=== PATIENT | male | born 1955 | race Caucasian/White ===

== ENCOUNTER → 2022-05-04 14:10 | Outpatient (BNVA) | payer MEDICARE, SELFPAY | PROVIDERS: PCP Family Medicine; Referring Provider Family Medicine; Visit Provider Physician Assistant | DX: Z12.11 Encounter for screening for malignant neoplasm of colon (principal); K59.00 Constipation, unspecified; R10.9 Unspecified abdominal pain | CPT/HCPCS: 99202 ==

== ENCOUNTER 2022-05-12 12:50 | Outpatient (REF) | payer MEDICARE, SELFPAY ==
[2022-05-12 13:59] LABS: MANUAL DIFF FLAG NO
[2022-05-12 14:06] LABS: Basophils Percent Auto 0.5 % (0-2); Eosinophils Absolute Auto 0.1 X10*3/uL (0.0-0.4); Eosinophils Percent Auto 1.5 % (0-4); Hematocrit 39.6 % (42.0-52.0); Hemoglobin 13.5 g/dl (14.0-18.0); Imm Gran Abs Auto 0.01 X10*3/uL (0.00-0.03); Imm Gran Pct Auto 0.2 % (0.0-0.4); Lymphocytes Absolute Auto 1.7 X10*3/uL (1.2-4.9); Lymphocytes Percent Auto 29.2 % (20-40); Mean Corpuscular HGB Conc 34.1 g/dl (31.0-36.0); Mean Corpuscular Hemoglobin 31.2 pg (27.0-33.0); Mean Corpuscular Volume 91.5 fL (80.0-98.0); Mean Platelet Volume 10.9 fL (9.4-12.4); Monocytes Absolute Auto 0.5 X10*3/uL (0.1-1.2); Monocytes Percent Auto 8.1 % (2-11); Neutrophils Absolute Auto 3.6 x10*3/uL (2.0-8.3); Neutrophils Percent Auto 60.5 % (45-73); Platelet Count 223 X10*3/uL (160-400); Red Blood Count 4.33 X10*6/uL (4.60-5.80); Red Cell Distribution Width 12.1 % (11.0-16.0); White Blood Count 5.9 X10*3/uL (4.8-10.8)
[2022-05-12 14:52] LABS: Erythrocyte Sedimentation Rate 6 MM/HR (0-15)
[2022-05-12 14:58] LABS: Alanine Aminotransferase 19 U/L (0-40); Albumin Level 3.9 g/dL (3.5-5.0); Alkaline Phosphatase 62 U/L (39-117); Anion Gap 8 (12-20); Aspartate Amino Transferase 28 U/L (5-37); Bilirubin Total 0.6 mg/dL (0.0-1.0); Blood Urea Nitrogen 25 mg/dL (9-16); C Reactive Protein < 0.10 mg/dL (< or = 0.50); Calcium 9.2 mg/dL (8.4-10.2); Carbon Dioxide 30 mmol/L (22-29); Chloride 106 mmol/L (96-108); Cholesterol 226 mg/dL; Estimated Glomerular Filt Rate > 60; Glucose Fasting 71 mg/dL (60-99); Glucose Random 71 mg/dL (60-115); HDL Cholesterol 47 mg/dL; LDL Cholesterol Calculated 159 mg/dl; Potassium 4.3 mmol/L (3.3-5.1); Sodium 140 mmol/L (135-145); Total Protein 6.2 g/dL (6.5-8.0); Triglycerides 102 mg/dL
[2022-05-12 15:02] LABS: Prostate Specific Antigen Scr 0.45 ng/mL (<0.05-4.0); TSH reflex Free T4 1.09 uIU/mL (0.32-4.0)
[2022-05-12 15:18] LABS: Thyroid Stimulating Hormone 1.05 uIU/mL (0.32-4.0)
== END 2022-05-12 12:51 | disposition home or self-care (01) ==
LOC: HO.WFDLDS 12:50
PROVIDERS: Family Medicine; Visit Provider Physician Assistant
DX: Z00.00 Encounter for general adult medical examination without abnormal findings (principal); K58.0 Irritable bowel syndrome with diarrhea; K58.1 Irritable bowel syndrome with constipation; K52.9 Noninfective gastroenteritis and colitis, unspecified; K59.09 Other constipation; R10.9 Unspecified abdominal pain; Z12.5 Encounter for screening for malignant neoplasm of prostate
CPT/HCPCS: 36415; 80053; 80061; 84153; 84443; 85025; 85652; 86140

== ENCOUNTER 2022-05-12 13:00 | Outpatient (RCR) | payer MEDICARE, SELFPAY ==
--- NOTE | 2022-04-21 15:19 | MHC.PT.EP ---
[facility] [place] Office [place] Office [place] Office [address] Sunil White [address] [phone] F: [phone] F: [phone] F: [phone] F: [phone] Physical Therapy Plan of Care Date of Evaluation: Date of Surgery: NA Diagnosis: DORSALGIA Assessment: Pt IS 66 YO M REFERRED TO PT FROM DR BAKER WITH DORSALGIA. REPORTS 2 YR HX OF BACK PAIN. PRESENTS WITH LIMITED TRUNK FLEXIBILITY, LIMITED LE FLEXIBILITY, TIGHT LUMBAR PARASPINALS, DECREASED CORE STRENGTH, POOR POSTURE AWARENESS. WORKS OVERNIGHT SHIFT AT ASSISTED. DIRECTIONAL PREFERENCE TO EXTENSION. SHOULD BENEFIT FROM PT TO ADDRESS THESE ISSUES Frequency and Duration: The patient will be seen 1X/WK X 4 WKS Short Term Goals: 1. INCREASED AWARENESS POSTURE AND BACK CARE WITH BODY MECH 2. I HEP WITH DC EX PLAN Half-Way Goals: 1. INCREASED TRUNK FLEXIBILITY 25% WITH LESS END RANGE PAIN 2. DECREASED BACK PAIN AT LEAST 50% WITH ADLS 3. IMPROVED MOD OSWESTRY (20/50 SOC) Treatment Plan: Modalities to reduce pain, spasms and effusion. Manual therapy to restore motion and function. Therapeutic exercise to improve strength and flexibility. Neuromuscular re-education for posture and balance. Therapeutic activities to return to functional activities of daily living. Electronically signed by: BANDAR SALVADOR PT Please sign and return to therapist. Thank you for your referral.
--- NOTE | 2022-05-19 14:27 | MHC.PT.DC ---
[facility] [place] Office [place] Office [place] Office [address] Sunil White [address] [phone] F: [phone] F: [phone] F: [phone] F: [phone] Physical Therapy Discharge Report Diagnosis: DORSALGIA Date of Surgery: NA Date of Evaluation: 04/21/22 Date of Discharge: 05/19/22 Treatments to Date: 3 Cancellations to Date: No Shows to Date: Discharge Status: Improved Function Independent with HEP Patient Elected to Stop Discharge Summary: GOOD PERF EX/STRETCHES WITHOUT C/O LE SXS OR INCREASE IN BACK PAIN. PLAN AT LAST SESSION TO MAKE 1 VISIT FOR 2 WK FU, IF NO INCREASED IN SXS TO CALL FOR DC, OTHERWISE CONT, REV GOALS AND LE STRENGTHENING . Pt CALLED TO CX LAST SESSION REPORTING FEELING BETTER AND NO NEED FOR FURTHER PT. 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 Thank you for your referral.
== END 2022-05-19 14:28 | disposition home or self-care (01) ==
LOC: HO.PTWFD 13:00
PROVIDERS: Visit Provider Family Medicine
DX: M54.9 Dorsalgia, unspecified (principal)
CPT/HCPCS: 97110; 97140; 97161; 97535

== ENCOUNTER 2022-05-26 07:23 | Outpatient (REF) | payer MEDICARE, SELFPAY ==
--- NOTE | ~2022-05-26 | XR_ITS ---
EXAMINATION: XR LUMBOSACRAL SPINE CLINICAL INFORMATION: Pain. COMPARISON: CT abdomen/pelvis performed same day. TECHNIQUE: Three views of the lumbosacral spine. FINDINGS: No acute compression deformity or traumatic subluxation. Prominent Schmorl's nodules along the inferior endplate of L4 and superior endplate of L5. Mild disc height loss at L4-L5 and L5-S1 with associated facet arthropathy leading to certain degree of neural foraminal encroachment. SI joints are symmetric. No significant paraspinal soft tissue abnormality. XR/XR lumbar spine 2-3V IMPRESSION: 1. No acute compression deformity or traumatic subluxation. 2. Moderate lower lumbar spondylosis. Further evaluation with an MR of the lumbar spine could be obtained for further characterization of nerve root impingement and degree of central canal narrowing if clinically deemed appropriate.
--- NOTE | ~2022-05-26 | CT_ITS ---
EXAMINATION: CT ABDOMEN AND PELVIS WITH CONTRAST CLINICAL INFORMATION: Abdominal pain. COMPARISON: None. TECHNIQUE: Multidetector volumetric images were obtained from the superior aspect of the liver through the pubic symphysis following administration 85 mL of Omnipaque 350 intravenous contrast. Sagittal and coronal reformatted images were obtained on the technologist's workstation. Oral contrast: No This CT examination was performed using dose optimization techniques as appropriate, variously including the following: *Automated exposure control *Adjustment of mA and/or kV according to patient size (this includes techniques or standardized protocols for targeted exams where dose is matched to indication/reason for exam; i.e. extremities or head) *Use of iterative reconstruction technique DLP: 408 mGy-cm FINDINGS: LUNG BASES: There is minimal plate-like atelectasis in the lung bases. Heart size is normal. LIVER, GALLBLADDER, AND BILIARY TREE: The liver is normal in size, shape, and attenuation. No focal hepatic lesion or biliary ductal dilatation is present. The gallbladder is unremarkable with no evidence of radiopaque gallstones, gallbladder wall thickening, or obvious pericholecystic inflammatory changes. PANCREAS: Unremarkable. SPLEEN: Unremarkable. ADRENAL GLANDS: Unremarkable. KIDNEYS AND URETERS: The kidneys are normal in size, shape, and attenuation. No hydronephrosis, hydroureter, or calculi seen. No perinephric stranding. BLADDER: Unremarkable. GASTROINTESTINAL TRACT: There is scattered oral contrast and stool seen in the colon without distention. The small bowel loops, partially opacified with oral contrast, are normal caliber. Appendix is normal caliber. No inflammatory process, free air or free fluid seen. ABDOMINAL WALL: No significant hernia is appreciated. LYMPH NODES: Normal. VASCULAR: Unremarkable. PELVIC VISCERA: Unremarkable. OSSEOUS STRUCTURES: No aggressive lytic or sclerotic process seen. There is an endplate Schmorl's node and sclerosis at the L4-L5 disc level. There is mild ventral spondylosis at L3-L4, L4-L5 and L2-L3 disc levels. CT/CT abdomen pelvis w IV con IMPRESSION: 1. No acute intra-abdominal process seen. 2. Mild constipation. Fleischner guidelines were followed.
[2022-05-26] MEDS: iohexoL 350 MG/ML 100 ML INFUS..BTL IV (09:55)
[2022-05-26] MEDS: Barium Sulfate Oral (Mocha) 450 ML ORAL.SUSP 900 ML PO (09:56)
== END 2022-05-26 07:24 | disposition home or self-care (01) ==
LOC: HO.CT 07:23
PROVIDERS: PCP Family Medicine; Visit Provider Physician Assistant
DX: R10.9 Unspecified abdominal pain (principal); M54.9 Dorsalgia, unspecified
CPT/HCPCS: 72100; 74177; Q9967

== ENCOUNTER 2022-06-09 11:49 | Outpatient (REF) | payer MEDICARE, SELFPAY ==
[2022-06-09 14:04] LABS: Appearance Urine Clear; Color Urine Yellow; Glucose Urine UA Negative (Negative); Leukocyte Esterase Urine Negative (Negative); Nitrite Urine Negative (Negative); PH 5.5 (5.0-9.0); Urine Blood Negative (Negative); Urine Ketones Negative (Negative); Urine Protein Negative (Neg-Trace)
== END 2022-06-09 11:50 | disposition home or self-care (01) ==
LOC: HO.LAB 11:49
PROVIDERS: Visit Provider Family Medicine
DX: Z00.00 Encounter for general adult medical examination without abnormal findings (principal); R39.11 Hesitancy of micturition; R30.0 Dysuria
CPT/HCPCS: 81003; 87086

== ENCOUNTER 2022-09-08 12:01 | Outpatient (REF) | payer MEDICARE, SELFPAY ==
[2022-09-08 14:14] LABS: MANUAL DIFF FLAG NO
[2022-09-08 14:27] LABS: Basophils Percent Auto 0.3 % (0-2); Eosinophils Absolute Auto 0.2 X10*3/uL (0.0-0.4); Eosinophils Percent Auto 2.1 % (0-4); Hematocrit 44.5 % (42.0-52.0); Hemoglobin 15.1 g/dl (14.0-18.0); Imm Gran Abs Auto 0.02 X10*3/uL (0.00-0.03); Imm Gran Pct Auto 0.2 % (0.0-0.4); Lymphocytes Absolute Auto 2.2 X10*3/uL (1.2-4.9); Lymphocytes Percent Auto 24.3 % (20-40); Mean Corpuscular HGB Conc 33.9 g/dl (31.0-36.0); Mean Corpuscular Hemoglobin 31.5 pg (27.0-33.0); Mean Corpuscular Volume 92.9 fL (80.0-98.0); Mean Platelet Volume 11.3 fL (9.4-12.4); Monocytes Absolute Auto 0.9 X10*3/uL (0.1-1.2); Monocytes Percent Auto 10.4 % (2-11); Neutrophils Absolute Auto 5.5 x10*3/uL (2.0-8.3); Neutrophils Percent Auto 62.7 % (45-73); Platelet Count 223 X10*3/uL (160-400); Red Blood Count 4.79 X10*6/uL (4.60-5.80); Red Cell Distribution Width 12.3 % (11.0-16.0); White Blood Count 8.8 X10*3/uL (4.8-10.8)
[2022-09-08 15:08] LABS: Anion Gap 9 (12-20); Blood Urea Nitrogen 24 mg/dL (9-16); Carbon Dioxide 31 mmol/L (22-29); Chloride 106 mmol/L (96-108); Cholesterol 211 mg/dL; Estimated Glomerular Filt Rate > 60; Glucose Random 80 mg/dL (60-115); HDL Cholesterol 47 mg/dL; LDL Cholesterol Calculated 143 mg/dl; Potassium 4.4 mmol/L (3.3-5.1); Sodium 142 mmol/L (135-145); Triglycerides 108 mg/dL
[2022-09-10 07:53] LABS: LDL Cholesterol Direct 151 mg/dL (<100)
== END 2022-09-08 12:02 | disposition home or self-care (01) ==
LOC: HO.WFDLDS 12:01
PROVIDERS: Visit Provider Family Medicine
DX: Z00.00 Encounter for general adult medical examination without abnormal findings (principal); E78.00 Pure hypercholesterolemia, unspecified; D64.9 Anemia, unspecified
CPT/HCPCS: 36415; 80048; 80061; 83721; 85025

== ENCOUNTER → 2022-11-05 11:11 | Outpatient (BNVA) | payer MEDICARE, SELFPAY | PROVIDERS: PCP Family Medicine; Visit Provider Urology | DX: N40.1 Benign prostatic hyperplasia with lower urinary tract symptoms (principal); R35.1 Nocturia | CPT/HCPCS: 51798; 99202 ==

== ENCOUNTER 2022-11-10 12:52 | Day surgery (SDC) | payer MEDICARE, SELFPAY ==
[2022-11-08 12:40] VITALS: BMI 26.2
--- NOTE | 2022-11-10 13:38 | MHC.SHP ---
Pre-Procedural Eval Section A Date of Service: 11/10/22 Section B Chief Complaint: screening Relevant Social History: None Present Medications: see Short Stay Collaborative assessment Medical History: Significant History (high chol, BPH) History of Previous Operations: No relevant previous surgery Allergies: Allergies Allergy/AdvReac Type Severity Reaction Status Date / Time Penicillins Allergy Severe Unknown Verified 11/05/22 11:35 Review of Systems Sugical H&P ROS: Negative: Constitution, Cardiovascular, Respiratory, Neurological, Psychiatric, Hem-Onc, Allergic/Immunologic, Gastrointestinal, Genitourinary, Musculoskeletal, Integumentary, Endocrine and Eyes/Ears/Nose/Throat Exam Surgical H&P Exam: Normal: HEENT, Normal: Heart, Normal: Lungs, Normal: Extremities, Normal: Abdomen, Normal: Skin and Normal: Neurological Plan Diagnosis/Plan: Unchanged I have reviewed the history and physical and performed a pertinent physical examination on my patient. No changes have occurred unless specified. Time Spent With Patient Time: Total time managing care of this patient today ____ minutes.
[2022-11-10 13:47] VITALS: BMI 26.1
[2022-11-10 13:52] VITALS: BP 122/75; PULSE 54; RESP 18; TEMP 36.4; O2SAT 99
[2022-11-10] MEDS: Lactated Ringers 1,000 ML 100 ML IVCONT (13:55)
[2022-11-10] MEDS: Sodium Phosphate,Mono-Dibasic 133 ML ENEMA PR (13:56)
--- NOTE | 2022-11-10 14:24 | W.PM.OPN ---
Operative Note Operative Note Date of Service: 11/10/22 Narrative: Operative Information Procedure Description: Colonoscopy Indication: screening Anesthesia: MAC COLONOSCOPY Instrument: Olympus variable stiffness ADULT scope 190L Colonoscopy Monitoring: Vital signs and clinical assessment, continuous EKG monitoring, Pulse oximetry, Carbon Dioxide monitoring and blood pressure monitoring were done throughout the procedure. Colon withdrawal time was 7 minutes. Procedure: The patient was placed in the left lateral decubitis position and pre-procedure medications were administered. After a digital rectal examination of the ano-rectum, the video colonoscope was inserted into the rectum and advanced through the colon to the cecum/TI. The colonoscope was slowly withdrawn in a retrograde panoramic fashion and the colon mucosa was carefully examined including a retroflexed view of the rectum. Findings and interventions are described below. Procedure Difficulty: easy Findings: Terminal Ileum-normal Cecum:normal Ascending Colon: 10 mm sessile polyp removed with cold snare Transverse Colon -normal Descending Colon:normal Sigmoid Colon: normal Rectum: Retroflexion with medium sized internal hemorrhoids, grade I, 8-10 mm sessile polyp removed with cold snare Anorectum - normal Colon preparation: Parker Bowel Preparation Scale Right colon; 2 Transverse colon: 1-2 Left colon; 1-2 (0 = Unprepared colon segment with mucosa not seen due to solid stool that cannot be cleared. 1 = Portion of mucosa of the colon segment seen, but other areas of the colon segment not well seen due to staining, residual stool and/or opaque liquid. 2 = Minor amount of residual staining, small fragments of stool and/or opaque liquid, but mucosa of colon segment seen well. 3 = Entire mucosa of colon segment seen well with no residual staining, small fragments of stool or opaque liquid) Impression and Post Procedure Diagnosis: fair prep polyps internal hemorrhoids Plan: High fiber diet leaflet Avoid straining at stool, epsom salts and sitz bath, anusol supps or cream Repeat Colonoscopy in 8-12 months or earlier if clinically indicated --next time adherence to diet and prep Above findings were reviewed with the patient and relevant handouts were provided if indicated.
[2022-11-10 14:27] VITALS: BP 91/47; PULSE 51; RESP 16; TEMP 36.9; O2SAT 98
[2022-11-10 14:46] VITALS: BP 120/68; PULSE 48; RESP 17; TEMP 36.1; O2SAT 99
== END 2022-11-10 15:32 | disposition home or self-care (01) ==
PROVIDERS: PCP Family Medicine; Visit Provider Internal Medicine Gastroenterology
PROC: 0DJD8ZZ Inspection of Lower Intestinal Tract, Via Natural or Artificial Opening Endoscopic (ICD-10-PCS; CPT 45378; principal; 2022-11-10 15:00)
DX: Z12.11 Encounter for screening for malignant neoplasm of colon (principal); D12.2 Benign neoplasm of ascending colon; K62.1 Rectal polyp; K64.0 First degree hemorrhoids; E78.00 Pure hypercholesterolemia, unspecified; D64.9 Anemia, unspecified; K59.00 Constipation, unspecified; Z87.891 Personal history of nicotine dependence; Z88.0 Allergy status to penicillin
CPT/HCPCS: 45385; 88305

== ENCOUNTER → 2022-11-10 12:52 | Outpatient (BNV) | payer MEDICARE, SELFPAY | PROVIDERS: PCP Family Medicine; Visit Provider Internal Medicine Gastroenterology | DX: K63.5 Polyp of colon (principal) | CPT/HCPCS: 45385 ==

== ENCOUNTER 2022-11-24 08:31 | Outpatient (AMB) | payer MEDICARE, SELFPAY ==
--- NOTE | 2022-11-24 08:39 | MHC.OFFVIS ---
Intake Vital Signs 11/24/22 08:46 Height 5 ft 11 in Weight 186 lb BMI 25.9 BP 98/53 L Blood Pressure Location Lt brachial Position Sitting Pulse 54 Intake Visit Reasons: S/p- Colon- Sun Intake Note: Patient follow up for Colonoscopy results. Patient cc: abdominal pain, heartburn on and off. Orthodontic Technician Required: No Accompanied by: Self / Same As Patient Allergies Penicillins Allergy (Severe, Verified 11/24/22 08:36) Unknown HPI HPI Comments History of Present Illness Details A 67 y/o male f/u after colonoscopy with polypectomy- inadequate prep Reviewed procedure and pathology Tolerated procedure well Abdominal comfort in the morning typically before BM however resolved BM. Has ear discomfort- alot of wax-feels pressure in the ear Eye surgery- in January-Flomax had been discontinued-however he is having dysuria Asking questions as to alternatives or other intervention He has no nausea, vomiting, hematemesis, hematochezia, fever chills. He has no hematuria. [facility] Medical History (Updated 11/24/22 @ 09:07 by Tangela Ulrich PA-C) Dysuria Surgical History Hx of colonoscopy Social History Alcohol intake: current Alcohol intake frequency: holidays/special occasions only Patient Tobacco Use Status: Former Tobacco user Quit Date: quit 12 yrs ago e-Cigarette/Vaping Use: Never Used Second Hand Smoke Exposure: No service: No Current occupational status: employed Current occupational exposures/hazards: No Cognitive needs: No Hearing needs: No Vision needs: No Review of Systems Const All systems reviewed & are unremarkable except as noted in HPI and below Card Denies chest pain and Denies dyspnea Resp Denies dyspnea GI Reports GI cramping (Resolved after BM), Denies diarrhea, Denies nausea and Denies vomiting Reports difficulty urinating (Since Flomax was discontinued) Physical Exam Vital Signs: Last Vital Signs Pulse 54 11/24/22 08:46 BP 98/53 L 11/24/22 08:46 BMI result Body Mass Index 25.9 Const General: cooperative, healthy appearing, comfortable and no acute distress Orientation/consciousness: patient oriented x3 Limitations: no limitations Eyes Sclerae: sclerae normal Resp Effort & Inspection: normal respiratory effort and able to speak in complete sentences Skin General skin exam: no rashes or lesions noted Neuro General: patient oriented x3 Extrem General: Yes full ROM Psych Appearance: grossly normal and well kempt Mental Status: mental status grossly normal Speech and movement: Normal speech and movement present and Clear speech present Affect: Labile affect present Attitude: cooperative Thought process: Normal thought process present Thought content: Normal thought content present Results Reviewed Results Reviewed: Impression and Post Procedure Diagnosis: fair prep polyps internal hemorrhoids Plan: High fiber diet leaflet Avoid straining at stool, epsom salts and sitz bath, anusol supps or cream Repeat Colonoscopy in 8-12 months or earlier if clinically indicated --next time adherence to diet and prep Name:?RachmarceloKurtis Age/Sex: 67/M Attending: Francie Sun MD : 1955 Submitted by: Francie Sun MD Copies to: Matt Miranda MD MR #: [id number] ? Status: [facility] Collected: 11/10/22 Location: [facility] Received: 11/11/22 Diagnosis A.? Colon, ascending, polypectomy:? Sessile serrated polyp/lesion without cytologic dysplasia.? B.? Rectum, polypectomy:? Hyperplastic polyp. Clinical History Pre-Op Dx:? Colon cancer screening Post-Op Dx: Colon polyps, hemorrhoids, fair prep Above findings were reviewed with the patient and relevant handouts were provided if indicated. CT/CT abdomen pelvis w IV con IMPRESSION: 1.? No acute intra-abdominal process seen. ? 2.? Mild constipation. ? Assessment & Plan Assessment & Plan (1) Sessile colonic polyp: Code(s): K63.5 - Polyp of colon Plan: Repeat colonoscopy 8-12 months She back in office in 7 months to schedule and discuss extended prep Difficult to have 2 days clear would recommend MiraLax b.i.d. 5 days prior to prep day (2) Hemorrhoids: Code(s): K64.9 - Unspecified hemorrhoids Plan: Maintain high-fiber diet avoid straining Literature given (3) Hyperplastic colonic polyp: Code(s): K63.5 - Polyp of colon Plan Call PCP today to discuss non GI issues Schedule for office visit repeat colonoscopy 7 months Medications: New methylcellulose (laxative) (Citrucel) 500 mg PO TID 90 tabs 5RF Patient Instructions: Repeat colonoscopy 8-12 months will see back in the office and is 7 months to discuss extended prep. Maintain high-fiber diet avoid straining with hemorrhoids. He will give trial to Citrucel tabs High-fiber diet literature given to the patient Contact PCP today for non GI concerns-discuss dysuria as well as possible impacted cerumen- Opportunity for questions answered to his satisfaction. Encouraged to call with any questions or concerns Appreciate the opportunity assist in the care this enrico Roque Coding Level of Care Code Est Pt Level 3 (41194) Diagnoses Sessile colonic polyp K63.5 Hemorrhoids K64.9 Hyperplastic colonic polyp K63.5 Time Spent (min) 22
[2022-11-24 08:46] VITALS: BP 98/53; PULSE 54; BMI 25.9
== END 2022-11-24 08:57 | disposition home or self-care (01) ==
PROVIDERS: PCP Family Medicine; Visit Provider Physician Assistant
DX: K63.5 Polyp of colon (principal); K64.9 Unspecified hemorrhoids
CPT/HCPCS: 99213

== ENCOUNTER → 2022-11-24 08:31 | Outpatient (BNVA) | payer MEDICARE, SELFPAY | PROVIDERS: PCP Family Medicine; Visit Provider Physician Assistant | DX: K63.5 Polyp of colon (principal); K64.9 Unspecified hemorrhoids | CPT/HCPCS: 99212 ==

== ENCOUNTER 2022-11-25 10:13 | Outpatient (AMB) | payer MEDICARE, SELFPAY ==
[2022-11-25 10:34] VITALS: BP 98/54; PULSE 65; RESP 14; TEMP 37.2; O2SAT 96; BMI 25.0
--- NOTE | 2022-11-25 10:34 | AM.OFFWIN_ITS ---
Intake Vital Signs 11/25/22 10:34 Height 5 ft 11 in Weight 179 lb 2 oz BMI 25.0 BP 98/54 L Blood Pressure Location Rt brachial Position Sitting Respiration 14 Pulse 65 Pulse Source Pulse Oximeter Temp 98.9 F Temp Source Temporal Artery Scan Pulse Oximetry (%) 96 Oxygen Delivery Method Room Air Intake Visit Reasons: right ear blocked, [phone] Intake Note: Patient is here today because of his right ear feeling impacted. Patient reports he has tried OTC ear drops and flushing his ear at home with no relief. Secondary question patient is having cataract surgery on January 13 and and was told he has to hold his flomax. Patient is wondering how long he should hold flomax prior to surgery. Patient Tobacco Use Status: Former Tobacco user Quit Date: quit 12 yrs ago Duplex Trimmer Required: No Accompanied by: Self / Same As Patient Allergies Penicillins Allergy (Severe, Verified 11/25/22 11:00) Unknown Medication List - Last Reconciled 11/25/22 by Sheryl Milton CNP atorvastatin 20 mg PO BEDTIME 30 days methylcellulose (laxative) (Citrucel) 500 mg PO TID tamsulosin (Flomax) 0.4 mg PO BEDTIME 30 days Do you need a note to return to daycare/school/sports/work: No HPI HPI Comments History of Present Illness Details 67-year-old male presents with complaints of blocked right ear with impaired hearing. He notes that his right ear feels impacted. [id number] remedies have been ineffective. No ear pain, fever, chills, body aches, fatigue, or weakness. He states he was told by his surgical provider to hold tamsulosin for pending cataract surgery. He is unsure of how long to the medication P [facility] Medical History (Updated 11/25/22 @ 11:12 by Sheryl Milton CNP) Dysuria Surgical History Hx of colonoscopy Social History Alcohol intake: current Alcohol intake frequency: holidays/special occasions only Patient Tobacco Use Status: Former Tobacco user Quit Date: quit 12 yrs ago e-Cigarette/Vaping Use: Never Used Second Hand Smoke Exposure: No service: No Current occupational status: employed Current occupational exposures/hazards: No Cognitive needs: No Hearing needs: No Vision needs: No Review of Systems Const Details: Const Denies chills, Denies fatigue, Denies fever(s), Denies headache(s) and Denies weakness ENT Reports as per HPI Resp Denies cough, Denies dyspnea, Denies wheezing and Denies other (shortness of breath) Cardio Denies chest pain, Denies lightheadedness, Denies dyspnea and Denies other (palpitations) Neuro Denies dizziness, Denies headache(s), Denies numbness, Denies tingling and Denies weakness Psych Denies anxiety, Denies depression, Denies memory?loss Endo Denies fatigue Aller/Immun Denies wheezing Physical Exam Vital Signs: Last Vital Signs Temp 98.9 F 11/25/22 10:34 Pulse 65 11/25/22 10:34 Resp 14 11/25/22 10:34 BP 98/54 L 11/25/22 10:34 Pulse Ox 96 11/25/22 10:34 Oxygen Delivery Method Room Air 11/25/22 10:34 BMI result Body Mass Index 25.0 Const Other: Const General: well developed; No acute distress Nutritional Appearance: well nourished Orientation/consciousness: patient oriented x3 HEENT Head is normocephalic Impacted cerumen of the right ear, ear canal is normal. Left ear canal and TM is normal. Nasal turbinates and oropharynx are pink and moist Sinuses are nontender with palpation No auricular or cervical lymphadenopathy Eyes General: appearance normal, both eyes and all related structures Pupils: Equal, round and reactive pupils present EOM: EOMs intact bilaterally Resp Effort & Inspection: normal respiratory effort Auscultation: clear to auscultation bilaterally Cardio Rate: regular rate Rhythm: regular rhythm Heart sounds: S1 normal heart sound present, S2 normal heart sound present, no gallops, no murmurs and no rubs Bruits: no abdominal aortic bruits and no carotid bruits Neuro General: patient oriented x3 and gait normal, no focal neuro deficit Cranial nerves: Yes Equal, round and reactive pupils present Psych Affect: normal affect Assessment & Plan Assessment & Plan (1) Impacted cerumen, right ear: Code(s): H61.21 - Impacted cerumen, right ear Plan: Cerumen removed from the right ear with irrigation Right ear canal and TM is normal Patient reports improved right hearing Advised to contact surgery regarding all long tamsulosin should be held Advised to follow-up with PCP as planned or return sooner with symptoms or concerns Verbalized understanding and agreed with treatment plan. Coding Level of Care Code Est Pt Level 3 (42959) Diagnoses Impacted cerumen, right ear H61.21 Time Spent (min) 25
== END 2022-11-25 11:21 | disposition home or self-care (01) ==
PROVIDERS: PCP Family Medicine; Visit Provider Nurse Practitioner Family
DX: H61.21 Impacted cerumen, right ear (principal)
CPT/HCPCS: 99213

== ENCOUNTER 2022-12-23 09:48 | Outpatient (REF) | payer OTHER, MEDICARE, SELFPAY ==
[2022-12-23 11:12] LABS: MANUAL DIFF FLAG NO
[2022-12-23 11:51] LABS: Basophils Percent Auto 0.6 % (0-2); Eosinophils Absolute Auto 0.1 X10*3/uL (0.0-0.4); Eosinophils Percent Auto 1.7 % (0-4); Hemoglobin 14.9 g/dl (14.0-18.0); Imm Gran Abs Auto 0.01 X10*3/uL (0.00-0.03); Imm Gran Pct Auto 0.2 % (0.0-0.4); Immature Retic Fraction 6.4 % (2.3-13.4); Lymphocytes Absolute Auto 1.5 X10*3/uL (1.2-4.9); Lymphocytes Percent Auto 27.1 % (20-40); Mean Corpuscular HGB Conc 34.7 g/dl (31.0-36.0); Mean Corpuscular Hemoglobin 31.9 pg (27.0-33.0); Mean Corpuscular Volume 92.1 fL (80.0-98.0); Mean Platelet Volume 10.9 fL (9.4-12.4); Monocytes Absolute Auto 0.5 X10*3/uL (0.1-1.2); Monocytes Percent Auto 9.9 % (2-11); Neutrophils Absolute Auto 3.3 x10*3/uL (2.0-8.3); Neutrophils Percent Auto 60.5 % (45-73); Platelet Count 214 X10*3/uL (160-400); Red Blood Count 4.67 X10*6/uL (4.60-5.80); Red Cell Distribution Width 12.5 % (11.0-16.0); Reticulocytes Absolute 0.047 X10*6/uL (0.026-0.095); White Blood Count 5.4 X10*3/uL (4.8-10.8)
[2022-12-23 12:17] LABS: Anion Gap 11 (12-20); Blood Urea Nitrogen 21 mg/dL (9-16); Calcium 9.4 mg/dL (8.4-10.2); Carbon Dioxide 28 mmol/L (22-29); Chloride 107 mmol/L (96-108); Cholesterol 145 mg/dL (<200); Estimated Glomerular Filt Rate > 60; Glucose Fasting 95 mg/dL (60-99); HDL Cholesterol 51 mg/dL (>40); Iron 88 mcg/dL (45-160); LDL Cholesterol Calculated 84 mg/dL (<100); Percent Iron Saturation 29 % (15-50); Potassium 4.6 mmol/L (3.3-5.1); Sodium 141 mmol/L (135-145); Total Iron Binding Capacity 307 mcg/dL (228-428); Triglycerides 53 mg/dL (<150); Unsaturated Iron Binding 219 ug/dL
[2022-12-23 12:20] LABS: Ferritin 95 ng/mL (20-250)
[2022-12-23 13:32] LABS: Folate 10.2 ng/mL (> or = 4.0); Vitamin B12 464 pg/mL (200-900)
== END 2022-12-23 09:49 | disposition home or self-care (01) ==
LOC: HO.WFDLDS 09:48
PROVIDERS: Visit Provider Family Medicine
DX: D64.9 Anemia, unspecified (principal); E53.8 Deficiency of other specified B group vitamins; E78.00 Pure hypercholesterolemia, unspecified
CPT/HCPCS: 36415; 80048; 80061; 82607; 82728; 82746; 83540; 85025; 85045

== ENCOUNTER 2022-12-30 14:39 | Outpatient (AMB) | payer MEDICARE, SELFPAY ==
[2022-12-30 14:42] VITALS: BP 100/60; PULSE 65; O2SAT 98; BMI 25.0
--- NOTE | 2022-12-30 14:42 | MHC.PC.OV ---
Vital Signs 12/30/22 14:42 Height 5 ft 11 in Weight 179 lb BMI 25.0 BP 100/60 Blood Pressure Location Lt brachial Position Sitting Pulse 65 Pulse Source Pulse Oximeter Pulse Oximetry (%) 98 Oxygen Delivery Method Room Air Intake Visit Reasons: f/u hypercholesterolemia Intake Note: Patient is here to follow up on his cholesterol. He is having cataract surgery in about 3 weeks, needs medication to be signed off. Allergies Penicillins Allergy (Severe, Verified 12/30/22 14:47) Unknown Tobacco use date assessed: 12/30/22 Fall risk assessment: No Falls in past year Last assessed Fall Risk: 12/30/22 Dental Screening Dental Screen Date: 12/30/22 Did you have a dental visit in the last 12 months?: No Did you have a dental problem in the last 6 months where you did not have access to dental care?: No Was dental information given to patient?: Patient declined HPI f/u hypercholesterolemia HPI Details 67 y/o male presents to f/u HLD. Had started him on artovastatin 20mg daily. Labs were drawn 12/23/22. Reviewed labs with pt. Triglycerides improved from 108 to 63. TC 145. LDL improved from 143 to 84. HDL 51. Pt has concerns regarding flomax and his glaucoma surgery. HPI Comments History of Present Illness Details Documentation assistance for Matt Miranda MD, was provided by Dk Santiago, Wind Instrument Repairer on 12/30/2022 3:25 PM EST. I, Dr. Miranda, have read, observed, and verified documentation. PFSH Medical History Dysuria Surgical History Hx of colonoscopy Social History Housing: House Alcohol intake: current Alcohol intake frequency: holidays/special occasions only Patient Tobacco Use Status: Former Tobacco user Quit Date: quit 12 yrs ago e-Cigarette/Vaping Use: Never Used Second Hand Smoke Exposure: No service: No Current occupational status: employed Current occupational exposures/hazards: No Cognitive needs: No Hearing needs: No Vision needs: No Questionnaire Thrive Questionnaire Date Thrive assessed: 06/09/22 ANGELICA-7 AMB Questionnaire ANGELICA-7 Date ANGELICA - 7 assessed: 06/09/22 Source: Developed by Drs. Rolando Hunt, Franchesca Dhaliwal, Peyman Pena and colleagues, with an educational keith from [employer]. Review of Systems Const Denies chills, Denies fatigue, Denies fever(s), Denies headache(s) and Denies weakness ENT Denies dizziness and Denies headache(s) Card Denies dyspnea Resp Denies cough, Denies dyspnea, Denies wheezing and Denies other (shortness of breath) Musc Denies numbness and Denies tingling Neuro Denies dizziness, Denies headache(s), Denies numbness, Denies tingling and Denies weakness Psych Denies anxiety and Denies depression Endo Denies fatigue Aller/Immun Denies wheezing Physical exam (Primary Care) Vital Signs: Last Vital Signs Pulse 65 12/30/22 14:42 BP 100/60 12/30/22 14:42 Pulse Ox 98 12/30/22 14:42 Oxygen Delivery Method Room Air 12/30/22 14:42 BMI result Body Mass Index 25.0 Tobacco/Smoking Status: Tobacco use Status Tobacco use date assessed 12/30/22 12/30/22 14:53 Patient Tobacco Use Status Former Tobacco user 12/30/22 14:53 e-Cigarette/Vaping Use Never Used 12/30/22 14:53 Thrive Assessment: Date of Thrive Assessment Date Thrive assessed 06/09/22 12/30/22 14:53 Const General: well developed; No acute distress Nutritional Appearance: well nourished Orientation/consciousness: patient oriented x3 [facility] Head: Yes normocephalic and Yes atraumatic Eyes General: appearance normal, both eyes and all related structures Pupils: Equal, round and reactive pupils present EOM: EOMs intact bilaterally Resp Effort & Inspection: normal respiratory effort Neuro General: patient oriented x3 and gait normal Cranial nerves: Yes Equal, round and reactive pupils present Psych Affect: normal affect Assessment and Plan Assessment & Plan (1) Hypercholesterolemia: Code(s): E78.00 - Pure hypercholesterolemia, unspecified Plan: Lipids now well controlled on atorvastatin 20 mg daily Continue current medication regimen Continue diet lower in saturated fats and cholesterol and continue exercise (2) Hyperplastic colonic polyp: Code(s): K63.5 - Polyp of colon Plan: Hyperplastic polyps seen on colonoscopy. He will follow-up with GI in 8-12 months (3) BPH associated with nocturia: Code(s): N40.1 - Benign prostatic hyperplasia with lower urinary tract symptoms; R35.1 - Nocturia Plan: Followed by urology now and has an appointment for follow-up in 6 months He is on Flomax which significantly helps with symptoms. He is concerned regarding Flomax and glaucoma surgery-see below (4) Glaucoma: Code(s): H40.9 - Unspecified glaucoma Plan: Patient has an upcoming glaucoma surgery and is on Flomax. He inquired with his carbonator and neurologist to seem to have deferred decision about Flomax to each other and to me. Patient will discontinue Flomax at least a week prior to his surgery. He will let his eye surgeon know how long he has discontinued it. He should follow-up with the eye surgeon regarding when he can resume this. Coding Level of Care Code Est Pt Level 4 (61033) Diagnoses Hypercholesterolemia E78.00 Hyperplastic colonic polyp K63.5 BPH associated with nocturia N40.1; R35.1 Glaucoma H40.9
== END 2022-12-30 15:36 | disposition home or self-care (01) ==
PROVIDERS: PCP Family Medicine; Visit Provider Family Medicine
DX: E78.00 Pure hypercholesterolemia, unspecified (principal); K63.5 Polyp of colon; N40.1 Benign prostatic hyperplasia with lower urinary tract symptoms; R35.1 Nocturia; H40.9 Unspecified glaucoma
CPT/HCPCS: 99214

== ENCOUNTER 2023-01-06 12:51 | Outpatient (AMB) | payer MEDICARE, SELFPAY ==
[2023-01-06 12:55] VITALS: BP 98/60; PULSE 48; RESP 12; TEMP 36.6; O2SAT 99; BMI 25.4
--- NOTE | 2023-01-06 12:55 | A.OFFPC_ITS ---
Vital Signs 01/06/23 12:55 Height 5 ft 11 in Weight 182 lb 2 oz BMI 25.4 BP 98/60 Blood Pressure Location Rt brachial Position Sitting Respiration 12 Pulse 48 L Pulse Source Pulse Oximeter Temp 97.9 F Temp Source Temporal Artery Scan Pulse Oximetry (%) 99 Oxygen Delivery Method Room Air Intake Visit Reasons: 01/13/23 Cataracts Right Eye- Eye&Lasik Club Attendant Required: No Accompanied by: Self / Same As Patient Allergies Penicillins Allergy (Severe, Verified 01/06/23 13:02) Unknown Tobacco use date assessed: 12/30/22 Fall risk assessment: No Falls in past year Last assessed Fall Risk: 01/06/23 Dental Screening Dental Screen Date: 01/06/23 Did you have a dental visit in the last 12 months?: No Did you have a dental problem in the last 6 months where you did not have access to dental care?: No Was dental information given to patient?: Yes HPI 01/13/23 Cataracts Right Eye- Eye&Lasik HPI Details Patient presents for preoperative clearance prior to Cataract & Lasik Procedure: Date: 01/13/23 and 01/27/23 Surgeon: Dr. Smith Anesthesia: Local & MAC Cardiac Hx: None Pulmonary Hx: None Prior Surgical complications: None Prior Anesthesia Complications: L hand Lac repair with local anesthetic - no problems Coag Issues: None Functional [place]: Able to walk 2 city blocks on level ground. Able to climb multiple flight of stairs with a bag of groceries. Plays golf. PFSH Medical History Dysuria Surgical History Hx of colonoscopy Family History (Updated 01/06/23 @ 13:04 by Marlee Fierro MA) Other Mental health disorder Social History Housing: House Alcohol intake: current Alcohol intake frequency: holidays/special occasions only Patient Tobacco Use Status: Former Tobacco user Quit Date: quit 12 yrs ago e-Cigarette/Vaping Use: Never Used Second Hand Smoke Exposure: No service: No Current occupational status: employed Current occupational exposures/hazards: No Cognitive needs: No Hearing needs: No Vision needs: No Questionnaire Thrive Questionnaire Date Thrive assessed: 06/09/22 ANGELICA-7 AMB Questionnaire ANGELICA-7 Date ANGELICA - 7 assessed: 06/09/22 Source: Developed by Drs. Rolando Hunt, Franchesca Dhaliwal, Peyman Pena and colleagues, with an educational keith from [employer]. Review of Systems Const Denies chills, Denies fatigue, Denies fever(s), Denies headache(s) and Denies weakness ENT Denies dizziness and Denies headache(s) Card Denies chest pain, Denies lightheadedness, Denies dyspnea and Denies other (Palpitations) Resp Denies cough, Denies dyspnea, Denies wheezing and Denies other ( shortness of breath) Musc Denies numbness and Denies tingling Neuro Denies dizziness, Denies headache(s), Denies numbness, Denies tingling, Denies paresthesias and Denies weakness Psych Denies anxiety and Denies depression Endo Denies fatigue Aller/Immun Denies wheezing Physical exam (Primary Care) Vital Signs: Last Vital Signs Temp 97.9 F 01/06/23 12:55 Pulse 48 L 01/06/23 12:55 Resp 12 01/06/23 12:55 BP 98/60 01/06/23 12:55 Pulse Ox 99 01/06/23 12:55 Oxygen Delivery Method Room Air 01/06/23 12:55 BMI result Body Mass Index 25.4 Tobacco/Smoking Status: Tobacco use Status Tobacco use date assessed 12/30/22 01/06/23 13:04 Patient Tobacco Use Status Former Tobacco user 01/06/23 13:04 e-Cigarette/Vaping Use Never Used 01/06/23 13:04 Thrive Assessment: Date of Thrive Assessment Date Thrive assessed 06/09/22 01/06/23 13:04 Const General: no acute distress and well developed Nutritional Appearance: well nourished Orientation/consciousness: patient oriented x3 HEN[facility] Head: Yes normocephalic and Yes atraumatic Eyes General: appearance normal, both eyes and all related structures Pupils: Equal, round and reactive pupils present EOM: EOMs intact bilaterally Resp Effort & Inspection: normal respiratory effort Auscultation: clear to auscultation bilaterally Cardio Rate: regular rate Rhythm: regular rhythm Heart sounds: S1 normal heart sound present, S2 normal heart sound present, no gallops, no murmurs and no rubs Neuro General: patient oriented x3 and gait normal Cranial nerves: Yes Equal, round and reactive pupils present Psych Affect: normal affect Assessment and Plan Assessment & Plan (1) Pre-operative clearance: Code(s): Z01.818 - Encounter for other preprocedural examination Plan: 67-year-old male presents for preoperative clearance prior to cataract and LASIK eye surgery. No history of cardiac or pulmonary disease and exams of heart lungs today are within normal limits. No prior surgeries No complications from prior local anesthetics No coagulopathies Good functional reserve Low risk patient for low risk procedure no contraindications to proceeding with proposed procedure He has discontinued his Flomax and will have done so for greater than 1 week. He may resume this 1 day after procedure or at the discretion of the surgeon. 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 He can continue his other medications until the day of surgery and resume them again the day after his surgery. Coding Level of Care Code Est Pt Level 3 (04181) Diagnoses Pre-operative clearance Z01.818
== END 2023-01-06 13:45 | disposition home or self-care (01) ==
PROVIDERS: PCP Family Medicine; Visit Provider Family Medicine
DX: Z01.818 Encounter for other preprocedural examination (principal)
CPT/HCPCS: 99213

== ENCOUNTER 2023-06-29 08:00 | Outpatient (AMB) | payer MEDICARE, OTHER, SELFPAY ==
--- NOTE | 2023-06-29 08:04 | A.OFFVIS_ITS ---
Intake Vital Signs 06/29/23 08:18 Height 5 ft 11 in Weight 180 lb 12.465 oz BMI 25.2 BP 113/64 Blood Pressure Location Lt brachial Position Sitting Pulse 50 Intake Visit Reasons: 7m - Discuss [place] w/ Extended Prep Intake Note: Kurtis presents in the office as a 7 month follow up. CC: here to discuss extended colo prep. States that he has not needed to take the laxative. No concerns today. Power Tool Repair Technician Required: No Allergies Penicillins Allergy (Severe, Verified 06/29/23 08:20) Unknown Medication List - Last Reconciled 06/29/23 by Tangela Ulrich PA-C atorvastatin 20 mg PO BEDTIME 30 days methylcellulose (laxative) (Citrucel) 500 mg PO TID tamsulosin (Flomax) 0.4 mg PO BEDTIME 30 days HPI HPI Comments History of Present Illness Details A 67 y/o male hx sessile polyp- here for repeat colon due to inadequate prep No GI complaints Covid last month- doing well now- PFSH Medical History Dysuria Surgical History Hx of colonoscopy Family History Other Mental health disorder Social History Housing: House Alcohol intake: current Alcohol intake frequency: holidays/special occasions only Patient Tobacco Use Status: Former Tobacco user Quit Date: quit 12 yrs ago e-Cigarette/Vaping Use: Never Used Second Hand Smoke Exposure: No service: No Current occupational status: employed Current occupational exposures/hazards: No Cognitive needs: No Hearing needs: No Vision needs: No Review of Systems Const All systems reviewed & are unremarkable except as noted in HPI and below Card Denies chest pain and Denies dyspnea Resp Denies dyspnea GI Denies abdominal pain, Denies constipation, Denies nausea and Denies vomiting Physical Exam Vital Signs: Last Vital Signs Pulse 50 06/29/23 08:18 BP 113/64 06/29/23 08:18 BMI result Body Mass Index 25.2 Const General: cooperative, healthy appearing, comfortable and no acute distress Orientation/consciousness: patient oriented x3 Limitations: no limitations Eyes Sclerae: sclerae normal Resp Effort & Inspection: normal respiratory effort and able to speak in complete sentences Auscultation: clear to auscultation bilaterally, no rales, no rhonchi and no wheezes Cardio Rate: regular rate Rhythm: regular rhythm Heart sounds: S1 normal heart sound present and S2 normal heart sound present GI Palpation (GI): Soft to palpation and nontender Auscultation: normal bowel sounds Skin General skin exam: no rashes or lesions noted Neuro General: patient oriented x3 Extrem General: Yes full ROM Psych Appearance: grossly normal and well kempt Mental Status: mental status grossly normal Speech and movement: Normal speech and movement present Affect: normal affect Attitude: cooperative Thought process: Normal thought process present Thought content: Normal thought content present Assessment & Plan Assessment & Plan (1) Sessile colonic polyp: Comment: repeat colonoscopy- extend prep Code(s): K63.5 - Polyp of colon Plan repeat colonoscopy- Sun- MG prep miralax daily x 1 week prior to prep Medications: New polyethylene glycol 3350 (Miralax) Take daily for 1 week prior to prep day- 17 grams PO DAILY 30 days 510 grams 2RF bisacodyl (Dulcolax (bisacodyl)) Day before procedure @ 12 noon Take 4 tablets by mouth followed by large glass of water 20 mg (4 x 5 mg) PO ONCE 1 day PRN 4 tabs 0RF colonoscopy prep Z12.11 - Encounter for screening for malignant neoplasm of colon polyethylene glycol 3350 (Miralax) Take as directed by mouth the day before your procedure. 238 grams PO ONCE 1 day 238 grams 0RF laxative effect Patient Instructions: Pleasant gent- Repeat colonoscopy Extend prep- MG prep miralax qd x 1 wk prior to prep day Encouraged to call [facility] question or concerns Coding Level of Care Code Est Pt Level 3 (61902) Diagnoses Sessile colonic polyp K63.5 Time Spent (min) 25
[2023-06-29 08:18] VITALS: BP 113/64; PULSE 50; BMI 25.2
== END 2023-06-29 09:07 | disposition home or self-care (01) ==
PROVIDERS: PCP Family Medicine; Visit Provider Physician Assistant
DX: K63.5 Polyp of colon (principal)
CPT/HCPCS: 99213

== ENCOUNTER → 2023-06-29 08:00 | Outpatient (BNVA) | payer OTHER, MEDICARE, SELFPAY | PROVIDERS: PCP Family Medicine; Visit Provider Physician Assistant | DX: K63.5 Polyp of colon (principal) | CPT/HCPCS: 99212 ==

== ENCOUNTER 2023-06-30 15:55 | Outpatient (AMB) | payer MEDICARE, OTHER, SELFPAY ==
--- NOTE | 2023-06-30 16:14 | A.OFFVIS_ITS ---
Intake Intake Visit Reasons: BPH- follow up Intake Note: Patient presents today for a follow-up on BPH Meds- Tamsulosin Allergies to Antibiotic- Penicillins Blood Thinner- None Post Void Residual:37ml Darklight Inspector Required: No Accompanied by: Self / Same As Patient Allergies Penicillins Allergy (Severe, Verified 06/30/23 16:22) Unknown Medication List - Last Reconciled 06/30/23 by Yonny Goss MD atorvastatin 20 mg PO BEDTIME 30 days bisacodyl (Dulcolax (bisacodyl)) 20 mg (4 x 5 mg) PO ONCE PRN 1 day methylcellulose (laxative) (Citrucel) 500 mg PO TID polyethylene glycol 3350 (Miralax) 17 grams PO DAILY 30 days polyethylene glycol 3350 (Miralax) 238 grams PO ONCE 1 day tamsulosin (Flomax) 0.4 mg PO BEDTIME 90 days HPI HPI Comments History of Present Illness Details Kurtis is a pleasant male. He is seen for the following urologic conditions - lower urinary tract symptoms - urinary hesitancy with nocturia Six-month evaluation Doing well with Flomax Notices when he misses doses he starts to have weakness of stream Encourage continued Flomax use Twelve month follow-up 11/05/22-- The patient states that he is scheduled to have laser surgery of eyes in December. 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 He states that his PCP started Flomax about 6 months ago and he has had significant improvement in his urine symptoms. He was getting up 2-3 night previously and now he gets up occasionally at night. He has noticed the side effect of no ejaculate fluid, I have discussed with him that because of the relaxation of the bladder neck and the prostate what is occurring is there is retrograde semen going into the bladder and that is the cause of the decrease in the semen that he is seeing. I discussed with him that i will check with his laser surgeon regarding the alpha blockers that may be appropriate to use in the rastafarian of his upcoming laser procedure and the office will get back to him regarding his. Evaluation today UA-- Blood: negative, leukocytes: negative. Bladder scan PVR: 44 mL. PSA results reviewed--05/02/22-- 0.45. Plan: BPH Twelve month follow-up PVR PFSH Medical History Dysuria Surgical History Hx of colonoscopy Family History Other Mental health disorder Social History Housing: House Alcohol intake: current Alcohol intake frequency: holidays/special occasions only Patient Tobacco Use Status: Former Tobacco user Quit Date: quit 12 yrs ago e-Cigarette/Vaping Use: Never Used Second Hand Smoke Exposure: No service: No Current occupational status: employed Current occupational exposures/hazards: No Cognitive needs: No Hearing needs: No Vision needs: No Review of Systems Const Denies chills and Denies fever(s) Card Reports no additional complaints and Denies syncope Resp Denies cough GI Denies abdominal pain and Denies heartburn Reports as per HPI and Denies change in libido Neuro Denies syncope Psych Denies change in libido Endo Denies change in libido Physical Exam Const General: cooperative, healthy appearing, comfortable and no acute distress Orientation/consciousness: patient oriented x3 HEENT Face and sinus: Yes normal facial exam Mouth: moist mucous membranes Neck Neck: Yes normal visual inspection, Yes full ROM and Yes trachea midline Chest Chest palpation & inspection: normal inspection of the chest Resp Effort & Inspection: normal respiratory effort, able to speak in complete s entences and no respiratory distress GI Inspection: Yes normal to inspection Back/Spine/Pelvis Cervical Spine: normal cervical lordosis Thoracic/Lumbar Spine: thoracic and lumbar spine normal to inspection Skin General skin exam: no rashes or lesions noted Neuro General: patient oriented x3, gait normal, tone normal and moves all extremities Extrem General: Yes normal to inspection and Yes capillary refill normal Office Procedures Post Void Residual Post Residual Void Post Void Residual (PVR): 37 [id number] Void Residual by ultrasound Assessment & Plan Assessment & Plan (1) BPH associated with nocturia: Code(s): N40.1 - Benign prostatic hyperplasia with lower urinary tract symptoms; R35.1 - Nocturia (2) Urinary hesitancy: Code(s): R39.11 - Hesitancy of micturition Plan 12 month follow-up Orders: Orders AMB Post Void Residual by ultrasound Today R33.9 - Retention of urine, unspecified Prostate Specific Antigen 364 Days N40.1 - Benign prostatic hyperplasia with lower urinary tract symptoms, R35.1 - Nocturia Patient Instructions: Imaging studies, laboratory and physical exam results were discussed and reviewed in detail. No major barriers to patient understanding were identified. An opportunity to ask questions regarding the treatment plan was provided. All questions were answered. The patient expressed understanding and agreement with the above treatment plan. The patient is aware they should contact our office by phone for worsening of their current condition or the appearance of new urologic symptoms. Compliance is encouraged with any medications and followup testing that is ordered. It is a privilege to participate in the urologic care of your patient. If you have any questions or concerns regarding treatment for the above conditions, or other urologic issues, please do not hesitate to contact me. The office telephone contact is [phone]. This note is constructed using voice recognition software. While every effort has been made to ensure accuracy marine extension agent errors may have been included. Yours sincerely, Dr Yonny Goss MD, [facility] - Urology Providers of Expert, Compassionate Care for the Genitourinary System Coding Level of Care Code Est Pt Level 3 (73256) Diagnoses BPH associated with nocturia N40.1; R35.1 Urinary hesitancy R39.11 CPT Codes Post Residual Void - PVR CPT Code: 96593-Cmpx Void Residual by ultrasound ([id number])
== END 2023-06-30 16:33 | disposition home or self-care (01) ==
PROVIDERS: PCP Family Medicine; Visit Provider Urology
DX: N40.1 Benign prostatic hyperplasia with lower urinary tract symptoms (principal); R35.1 Nocturia; R39.11 Hesitancy of micturition
CPT/HCPCS: 99213

== ENCOUNTER → 2023-06-30 15:55 | Outpatient (BNVA) | payer OTHER, MEDICARE, SELFPAY | PROVIDERS: PCP Family Medicine; Visit Provider Urology | DX: N40.1 Benign prostatic hyperplasia with lower urinary tract symptoms (principal); R35.1 Nocturia; R39.11 Hesitancy of micturition | CPT/HCPCS: 51798; 99212 ==

== ENCOUNTER 2023-10-27 08:02 | Day surgery (SDC) | payer MEDICARE, SELFPAY ==
[2023-10-25 13:23] VITALS: BMI 25.1
--- NOTE | 2023-10-26 08:53 | P.CONAN_ITS ---
Documented by User: Jasmin Edwards NP 10/26/23 08:53 HPI - Anesthesia Eval Consult details Narrative: 68yo M for Colonoscopy PMFSH Active Problems Active Problems: All Active Problems Pre-operative clearance (Acute) Impacted cerumen, right ear (Acute) Dysuria (Acute) Hyperplastic colonic polyp (Acute) Hemorrhoids (Acute) Sessile colonic polyp (Acute) BPH associated with nocturia (Acute) Urinary hesitancy (Acute) Screening for prostate cancer (Acute) Hypercholesterolemia (Acute) Mild anemia (Acute) Adult general medical exam (Acute) Abdominal pain (Acute) Screening for colon cancer (Acute) Constipation (Acute) Back pain (Acute) Laboratory exam ordered as part of routine general medical examination (Acute) Past Medical History Medical History Dysuria Family History Family History Other Mental health disorder Surgical History Surgical History Hx of colonoscopy Social History Social History (Updated 10/27/23 @ 09:52 by Olamide Richard MD) Housing: House Alcohol intake: current Alcohol intake frequency: holidays/special occasions on ly Patient Tobacco Use Status: Former Tobacco user e-Cigarette/Vaping Use: Never Used Second Hand Smoke Exposure: No Substance Use Type: Marijuana service: No Current occupational status: employed Current occupational exposures/hazards: No Cognitive needs: No Hearing needs: No Vision needs: No Meds Allergies Allergy/AdvReac Type Severity Reaction Status Date / Time Penicillins Allergy Severe Unknown Verified 10/27/23 08:15 Exam Height,Weight and Vital Signs: Height 5 ft 11 in Weight 81.647 kg Assessment and Plan Assessment Anesthesia Assessment: Chart Reviewed Documented by User: Olamide Richard MD 10/27/23 09:55 PMFSH Past Medical History Medical History Dysuria Family History Family History Other Mental health disorder Family history of problems with anesthesia: No Surgical History Surgical History Hx of colonoscopy History of Problems with Anesthesia: No Social History Social History (Updated 10/27/23 @ 09:52 by Olamide Richard MD) Housing: House Alcohol intake: current Alcohol intake frequency: holidays/special occasions only Patient Tobacco Use Status: Former Tobacco user e-Cigarette/Vaping Use: Never Used Second Hand Smoke Exposure: No Substance Use Type: Marijuana service: No Current occupational status: employed Current occupational exposures/hazards: No Cognitive needs: No Hearing needs: No Vision needs: No Meds Allergies Allergy/AdvReac Type Severity Reaction Status Date / Time Penicillins Allergy Severe Unknown Verified 10/27/23 08:15 Exam Height,Weight and Vital Signs: Height 5 ft 11 in Weight 81.647 kg Vital Signs Temp Pulse Resp BP Pulse Ox O2 Del Method 10/27/23 08:33 96.6 F L 52 16 116/66 98 Room Air Airway Mallampati Class: II TM Dist: >3cm Neck ROM: Full Loose/Missing/Broken Teeth: Yes (Broken teeth 1 top, 1 bottom left. Denies missing or loose teeth) Heart: RRR Lungs: CTAB Assessment and Plan Final Anesthetic Review Family History of Problems with Anesthesia: No History of Problems with Anesthesia: No NPO: Yes ASA Class: II Final Preanesthetic Review: No Changes in Pt Med Stat, Meds/Allgs Chart Reviewed, Consent Obtained/Reviewed and Anes Risks/Benef Reviewed Patient Risk: Low Procedure Risk: Low Assessment/Block/Sedation in SS: Assess/Block/Sedation-SS Anesthetic Plan Anesthetic Plan: TIVA Disposition: Standard PACU
[2023-10-27 08:08] VITALS: BMI 23.7
[2023-10-27 08:33] VITALS: BP 116/66; PULSE 52; RESP 16; TEMP 35.9; O2SAT 98
[2023-10-27] MEDS: Lactated Ringers 1,000 ML 100 ML IVCONT (08:33)
--- NOTE | 2023-10-27 09:12 | MHC.SHP ---
Pre-Procedural Eval Section A - 24 Hr Update-Section A only Date of Service: 10/27/23 Section B - Complete if H&P > 30 days Chief Complaint: Polyp of colon Relevant Family History (Specify if Yes): No Relevant Social History: None Present Medications: see Short Stay Collaborative assessment Medical History: Significant History (colon polyp) History of Previous Operations: Relevant previous surgery/procedure and date(s) (Hx of colonoscopy) Allergies: Allergies Allergy/AdvReac Type Severity Reaction Status Date / Time Penicillins Allergy Severe Unknown Verified 10/27/23 08:15 Review of Systems Sugical H&P ROS: Negative: Constitution, Cardiovascular, Respiratory, Neurological, Psychiatric, Hem-Onc, Allergic/Immunologic, Gastrointestinal, Genitourinary, Musculoskeletal, Integumentary, Endocrine and Eyes/Ears/Nose/Throat Exam Surgical H&P Exam: Normal: HEENT, Normal: Heart, Normal: Lungs, Normal: Extremities, Normal: Abdomen, Normal: Skin and Normal: Neurological Plan Diagnosis/Plan: Unchanged I have reviewed the history and physical and performed a pertinent physical examination on my patient. No changes have occurred unless specified. Time Spent With Patient Time: Total time managing care of this patient today ____ minutes.
--- NOTE | 2023-10-27 10:27 | P.OPN-COLO_ITS ---
Colonoscopy Operative Note Operative Note Date of Service: 10/27/23 Narrative: Operative Information Procedure Description: Colonoscopy Indication: screening Anesthesia: MAC COLONOSCOPY Instrument: Olympus variable stiffness pediatric scope 190L Colonoscopy Monitoring: Vital signs and clinical assessment, continuous EKG monitoring, Pulse oximetry, Carbon Dioxide monitoring and blood pressure monitoring were done throughout the procedure. Colon withdrawal time was 8 minutes. Procedure: The patient was placed in the left lateral decubitis position and pre-procedure medications were administered. After a digital rectal examination of the ano-rectum, the video colonoscope was inserted into the rectum and advanced through the colon to the cecum/TI. The colonoscope was slowly withdrawn in a retrograde panoramic fashion and the colon mucosa was carefully examined including a retroflexed view of the rectum. Findings and interventions are described below. Procedure Difficulty: moderate Findings: Terminal Ileum-normal Cecum:normal Ascending Colon: normal Transverse Colon -normal Descending Colon:normal Sigmoid Colon: normal Rectum: Retroflexion with small internal hemorrhoids seen, grade I Anorectum - normal Intervention: none Colon preparation: [place] Bowel Preparation Scale Right colon; 2 Transverse colon: 2 Left colon; 1-2 (0 = Unprepared colon segment with mucosa not seen due to solid stool that cannot be cleared. 1 = Portion of mucosa of the colon segment seen, but other areas of the colon segment not well seen due to staining, residual stool and/or opaque liquid. 2 = Minor amount of residual staining, small fragments of stool and/or opaque liquid, but mucosa of colon segment seen well. 3 = Entire mucosa of colon segment seen well with no residual staining, small fragments of stool or opaque liquid) Impression and Post Procedure Diagnosis: internal hemorrhoids Plan: High fiber diet leaflet Avoid straining at stool, epsom salts and sitz bath, anusol supps or cream Repeat Colonoscopy in 5 years due to areas of fair prep in left colon or earlier if clinically indicated Above findings were reviewed with the patient and relevant handouts were provided if indicated.
[2023-10-27 11:03] VITALS: BP 95/54; PULSE 48; RESP 14; TEMP 36.4; O2SAT 97
[2023-10-27 11:18] VITALS: BP 109/61; PULSE 52; RESP 14; O2SAT 100
[2023-10-27 11:33] VITALS: BP 111/62; PULSE 47; RESP 16; TEMP 36.4; O2SAT 98
== END 2023-10-27 12:11 | disposition home or self-care (01) ==
PROVIDERS: PCP Family Medicine; Visit Provider Internal Medicine Gastroenterology
PROC: 0DJD8ZZ Inspection of Lower Intestinal Tract, Via Natural or Artificial Opening Endoscopic (ICD-10-PCS; CPT 45378; principal; 2023-10-27 10:00)
DX: Z12.11 Encounter for screening for malignant neoplasm of colon (principal); Z86.010 Personal history of colon polyps; K64.0 First degree hemorrhoids; R30.0 Dysuria; Z79.899 Other long term (current) drug therapy; Z88.0 Allergy status to penicillin; Z87.891 Personal history of nicotine dependence; Z86.16 Personal history of COVID-19
CPT/HCPCS: G0105; J2704

== ENCOUNTER → 2023-10-27 08:02 | Outpatient (BNV) | payer MEDICARE, SELFPAY | PROVIDERS: PCP Family Medicine; Visit Provider Internal Medicine Gastroenterology | DX: Z12.11 Encounter for screening for malignant neoplasm of colon (principal); Z86.010 Personal history of colon polyps; K64.0 First degree hemorrhoids | CPT/HCPCS: G0105 ==

== ENCOUNTER 2024-07-27 15:55 | Outpatient (AMB) | payer MEDICARE, SELFPAY ==
--- NOTE | 2024-07-27 15:52 | A.OFFVIS_ITS ---
Intake Visit Reasons: 1 Year follow-up Intake Note: Pt presents to the office today for a 1 year follow up/PVR. PVR: 19mL Allergies Penicillins Allergy (Severe, Verified 07/27/24 15:52) Unknown HPI Comments Details: Kurtis is a pleasant male. He is seen for the following urologic conditions - lower urinary tract symptoms - urinary hesitancy with nocturia Yearly follow-up Symptoms maintained Continues with Flomax Check PSA next year 11/05/22-- The patient states that he is scheduled to have laser surgery of eyes in December. 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 He states that his PCP started Flomax about 6 months ago and he has had significant improvement in his urine symptoms. He was getting up 2-3 night previously and now he gets up occasionally at night. He has noticed the side effect of no ejaculate fluid, I have discussed with him that because of the relaxation of the bladder neck and the prostate what is occurring is there is retrograde semen going into the bladder and that is the cause of the decrease in the semen that he is seeing. I discussed with him that i will check with his laser surgeon regarding the alpha blockers that may be appropriate to use in the orthodoxy of his upcoming laser procedure and the office will get back to him regarding his. Evaluation today UA-- Blood: negative, leukocytes: negative. Bladder scan PVR: 44 mL. PSA results reviewed--05/02/22-- 0.45. Plan: BPH Twelve month follow-up PVR PFSH Medical History Dysuria Surgical History Hx of colonoscopy Family History Other Mental health disorder Social History Housing: House Alcohol intake: current Alcohol intake frequency: holidays/special occasions only Patient Tobacco Use Status: Former Tobacco user e-Cigarette/Vaping Use: Never Used Second Hand Smoke Exposure: No Substance Use Type: Marijuana service: No Current occupational status: employed Current occupational exposures/hazards: No Cognitive needs: No Hearing needs: No Vision needs: No Review of Systems Const Denies chills and Denies fever(s) Card Reports no additional complaints and Denies syncope Resp Denies cough GI Denies abdominal pain and Denies heartburn Reports as per HPI and Denies change in libido Neuro Denies syncope Psych Denies change in libido Endo Denies change in libido Physical Exam Const General: cooperative, healthy appearing, comfortable and no acute distress Orientation/consciousness: patient oriented x3 HEENT Face and sinus: Yes normal facial exam Mouth: moist mucous membranes Neck Neck: Yes normal visual inspection, Yes full ROM and Yes trachea midline Chest Chest palpation & inspection: normal inspection of the chest Resp Effort & Inspection: normal respiratory effort, able to speak in complete sentences and no respiratory distress GI Inspection: Yes normal to inspection Back/Spine/Pelvis Cervical Spine: normal cervical lordosis Thoracic/Lumbar Spine: thoracic and lumbar spine normal to inspection Skin General skin exam: no rashes or lesions noted Neuro General: patient oriented x3, gait normal, tone normal and moves all extremities Extrem General: Yes normal to inspection and Yes capillary refill normal Office Procedures Post Void Residual Post Residual Void Post Void Residual (PVR): 19 08780-Eird Void Residual by ultrasound Assessment & Plan Assessment & Plan (1) BPH associated with nocturia: Code(s): N40.1 - Benign prostatic hyperplasia with lower urinary tract symptoms; R35.1 - Nocturia Category: Medical Plan Twelve month follow-up PSA with PVR Orders: Orders AMB Post Void Residual by ultrasound Today N40.1 - Benign prostatic hyperplasia with lower urinary tract symptoms, R35.1 - Nocturia Prostate Specific Antigen 364 Days N40.1 - Benign prostatic hyperplasia with lower urinary tract symptoms, R35.1 - Nocturia Medications: Refilled tamsulosin (Flomax) 0.4 mg PO BEDTIME 90 days 90 caps 3RF R39.11 - Hesitancy of micturition Patient Instructions: This note is constructed using voice recognition software. While every effort has been made to ensure accuracy medical transcription errors may have been included. Imaging studies, laboratory and physical exam results were discussed and reviewed in detail. No major barriers to patient understanding were identified. An opportunity to ask questions regarding the treatment plan was provided. All questions were answered. The patient expressed understanding and agreement with the above treatment plan. The patient is aware they should contact our office by phone for worsening of th eir current condition or the appearance of new urologic symptoms. Compliance is encouraged with any medications and followup testing that is ordered. It is a privilege to participate in the urologic care of your patient. If you have any questions or concerns regarding treatment for the above conditions, or other urologic issues, please do not hesitate to contact me. The office telephone contact is [phone]. Sincerely, Dr Yonny Goss MD, [facility] - Urology Compassionate Specialist Care for the Genitourinary System Coding Level of Care Code Est Pt Level 4 (40742) Diagnoses BPH associated with nocturia N40.1; R35.1 CPT Codes Post Residual Void - PVR CPT Code: 99720-Ptdz Void Residual by ultrasound ([id number])
== END 2024-07-27 16:12 | disposition home or self-care (01) ==
LOC: HO.HUSH 15:55
PROVIDERS: PCP Family Medicine; Visit Provider Urology
DX: N40.1 Benign prostatic hyperplasia with lower urinary tract symptoms (principal); R35.1 Nocturia
CPT/HCPCS: 99214

== ENCOUNTER → 2024-07-27 15:55 | Outpatient (BNVA) | payer MEDICARE, SELFPAY | PROVIDERS: PCP Family Medicine; Visit Provider Urology | DX: N40.1 Benign prostatic hyperplasia with lower urinary tract symptoms (principal); R35.1 Nocturia | CPT/HCPCS: 51798; 99212 ==

== ENCOUNTER 2024-09-04 10:22 | Outpatient (REF) | payer MEDICARE, SELFPAY ==
[2024-09-04 15:20] LABS: Alanine Aminotransferase 19 U/L (0-40); Albumin Level 4.2 g/dL (3.5-5.0); Anion Gap 10 (12-20); Aspartate Amino Transferase 30 U/L (5-37); Bilirubin Total 0.6 mg/dL (0.0-1.0); Blood Urea Nitrogen 25 mg/dL (9-16); Calcium 9.2 mg/dL (8.4-10.2); Carbon Dioxide 29 mmol/L (22-29); Chloride 106 mmol/L (96-108); Cholesterol 211 mg/dL (<200); Estimated Glomerular Filt Rate > 60; Glucose Random 112 mg/dL (60-115); HDL Cholesterol 49 mg/dL (>40); LDL Cholesterol Calculated 143 mg/dL (<100); Potassium 4.4 mmol/L (3.3-5.1); Sodium 141 mmol/L (135-145); Total Protein 6.9 g/dL (6.5-8.0); Triglycerides 96 mg/dL (<150)
[2024-09-04 15:20] LABS: Creatinine Urine 158.14 mg/dL; Microalbum/Creatinine Ratio Ur 4.4 ug/mg cr (<30)
[2024-09-04 15:24] LABS: TSH reflex Free T4 0.96 uIU/mL (0.32-4.0)
[2024-09-04 15:34] LABS: Estimated Average Glucose 108 mg/dL; Hemoglobin A1C 139.2223 umol/L; Hemoglobin A1c % 5.4 % (<6.0); Total Hemoglobin (HGBA1C) 3956.4679 umol/L
[2024-09-04 16:59] LABS: Alkaline Phosphatase 71 U/L (39-117)
[2024-09-10 18:13] LABS: PSA, Ultra Sensitive 0.43 ng/mL
== END 2024-09-04 10:23 | disposition home or self-care (01) ==
LOC: HO.WFDLDS 10:22
PROVIDERS: Referring Provider Urology; Visit Provider Nurse Practitioner Family
DX: Z00.00 Encounter for general adult medical examination without abnormal findings (principal); Z12.5 Encounter for screening for malignant neoplasm of prostate; Z13.1 Encounter for screening for diabetes mellitus; Z13.6 Encounter for screening for cardiovascular disorders
CPT/HCPCS: 36415; 80053; 80061; 82043; 82570; 83036; 84153; 84443

== ENCOUNTER 2024-12-12 12:13 | Outpatient (AMB) | payer MEDICARE, SELFPAY ==
--- NOTE | 2024-12-12 12:17 | MHC.PC.OV ---
Vital Signs 12/12/24 12:20 12/12/24 12:24 12/12/24 12:24 Height 5 ft 11 in Weight 180 lb 2 oz BMI 25.1 BP 118/66 116/66 120/70 Blood Pressure Location Lt brachial Lt brachial Lt brachial Position Supine Sitting Standing Respiration 12 12 Pulse 50 57 55 Pulse Source Pulse Oximeter Pulse Oximeter Pulse Oximeter Temp 97.1 F Temp Source Oral Pulse Oximetry (%) 97 100 98 Oxygen Delivery Method Room Air Room Air Room Air Intake Visit Reasons: light headed/dizziness Intake Note: Patient c/o light headed and dizziness. Staffing Analyst Required: No Allergies Penicillins Allergy (Severe, Verified 12/12/24 12:56) Unknown Medication List - Last Reconciled 12/12/24 by MAYITO Cosme-BEHZAD methylcellulose (laxative) (Citrucel) 500 mg PO TID tamsulosin (Flomax) 0.4 mg PO BEDTIME 90 days Tobacco use date assessed: 12/12/24 Fall risk assessment: No Falls in past year Last assessed Fall Risk: 12/12/24 Dental Screening Dental Screen Date: 12/12/24 Did you have a dental visit in the last 12 months?: Yes Did you have a dental problem in the last 6 months where you did not have access to dental care?: No Was dental information given to patient?: Patient has dentist HPI HPI Comments History of Present Illness Details 69 y/o M former tobacco user, hyperlipidemia, BPH with LUTs, glaucoma, low back pain, insomnia, OA SurgHx: cataract extraction R 2022, L hand lac repair History of Present Illness - The patient is a 69-year-old male presenting to [facility] care CC: dizziness. - Intermittent dizziness and lightheadedness have persisted for several years, worsening over the past few months. - Symptoms primarily triggered by standing up, relieved by sitting or lying down. - Recently, an episode of near-fainting occurred; however, consciousness was not completely lost. - He states he was sent to ED from this office d/t this in the past; i cannot find any records. - He also endorses short term memory impairment, new over the last few months; is forgetful; not good w/ dates and details. - Electrolytes, renal function, liver function, and thyroid assessments conducted in August were within normal limits. - No associated chest pain, palpitations, or visual disturbances reported. Reports UTD on eye exam. Has lense implants bilat. + headache. No n/v. Denies fever, chills, head trauma, loss of function. Review of Systems - Cardiovascular: Denies chest pain and palpitations. - Neurological: Reports dizziness and lightheadedness; denies headache, vision changes, or nystagmus. - General: Denies recent fainting episodes, past episode noted. Exam Awake alert NAD PERRLA, EOMI, Mild lateral nystagmus bilat, worse on R; negative jaky hallpike Bradycardic, regular rhythm , Ortho VS negative; however feels dizzy when sitting to standing and standing to sitting LS CTAB Bilat pedal pulses WNL Neuro exam nonfocal Results - Labs conducted in August: - Electrolytes: Normal - Renal Function: Normal - Liver Function: Normal - Thyroid Function: Normal - Cholesterol: Elevated - Diagnostics: - EKG: Performed during the visit, sinus rolanda, left axis deviation Discussion Notes We discussed the patient's chronic dizziness and its episodic nature, primarily upon standing, suggesting the possibility of orthostatic hypotension. I explained the need for further cardiovascular examination to rule out other potential causes for his symptoms, including a stress test and detailed blood work. We reviewed his previous lab work from August, which ruled out thyroid issues, diabetes, and significant electrolyte imbalances as causes. I emphasized the importance of addressing the dizziness since it impacts daily activities and safety, particularly in risky situations such as driving. We talked about the role of remaining hydrated and observing any patterns between symptoms and activities. I advised that upon completion of additional tests, we could better determine any underlying conditions and appropriate management strategies. Will also check imaging of head and neck given headaches and cognition concerns Patient was given time to ask questions. All questions were answered to their satisfaction. Assessment and Plan 1. Chronic Dizziness/Headache/Cognitive Changes - EKG checked cardiac rhythm and indicated further cardiac testing. - Requested stress test & echo for comprehensive cardiac evaluation. - CT head and neck - Advised proper hydration and symptom tracking upon positional changes. - No change in current medications, specifically tamsulosin, as no correlation found. - Labs will be mailed to him; My office will arrange f/u visit on testing is complete, sooner prn. - ED education provided. Consent Patient was informed and verbally consented to the use of an ambient scribe for clinic note documentation during this visit. Total time spent caring for the patient today was 45 minutes. This includes time spent before the visit reviewing the chart, time spent during the visit, and time spent after the visit on documentation, reviewing laboratory results, diagnostic imaging, medications, performing a medically necessary evaluation, counseling on diagnoses, care coordination, ordering appropriate tests, ordering appropriate medications, review of tests performed by other providers, reporting test results with the patient, communication with other healthcare providers. [facility] Medical History Dysuria Surgical History Hx of colonoscopy Family History Other Mental health disorder Social History Housing: House Alcohol intake: current Alcohol intake frequency: holidays/special occasions only Patient Tobacco Use Status: Former Tobacco user e-Cigarette/Vaping Use: Never Used Second Hand Smoke Exposure: No Substance Use Type: Marijuana service: No Current occupational status: employed Current occupational exposures/hazards: No Cognitive needs: No Hearing needs: No Vision needs: No Questionnaire PHQ-9 Over the last 2 weeks, how often have you been bothered by any of the following problems? 1. Little interest or pleasure in doing things: not at all 2. Feeling down, depressed, or hopeless: not at all 3. Trouble falling or staying asleep, or sleeping too much: not at all 4. Feeling tired or having little energy: not at all 5. Poor appetite or overeating: not at all 6. Feeling bad about yourself - or that you are a failure or have let yourself or your family down: not at all 7. Trouble concentrating on things, such as reading the newspaper or watching television: not at all 8. Moving or speaking so slowly that other people could have noticed. Or the opposite - being so fidgety or restless that you have been moving around a lot more than usual: not at all 9. Thoughts that you would be better off or of hurting yourself in some way: not at all Total score: 0 Depression Screening Interpretation: Negative Depression Screening Done: Yes 99188 - PHQ-9 Billing: Yes Source: Developed by Drs. Rolando Hunt, Franchesca Dhaliwal, Peyman Pena and colleagues, with an educational keith from [employer]. Thrive Questionnaire Date Thrive assessed: 12/12/24 I am a: Patient What is your living situation today?: I have a steady place to live Within the past 12 months, did the food you bought not last and you didn't have the money to get more?: Never true Within the past 12 months, did you worry whether your food would run out before you got money to buy more?: Never true Do you have trouble paying for medicines?: No Do you have trouble getting transportation to medical appointments?: No Do you have trouble paying your heating and electricity bill?: No Do you have trouble taking care of your child, family member or friend?: No Do you have trouble with day-to-day activities such as bathing, preparing meals, shopping, managing finances, etc.?: No Are you currently unemployed and looking for a job?: No Are you interested in more education?: No THRIVE Score: 0 AUDIT C Alcohol Use Questionnaire (AUDIT-C) 1. How often do you have a drink containing alcohol?: Never 3. How often do you have six or more drinks on one occasion?: Never Total Score: 0 Score Reviewed/Action Taken: Yes ANGELICA-7 AMB Questionnaire ANGELICA-7 Date ANGELICA - 7 assessed: 12/12/24 Feeling nervous, anxious, or on edge: 0 = Not at all Not being able to stop or control worryin = Not at all Worrying too much about different things: 0 = Not at all Trouble relaxin = Not at all Being so restless that it is hard to sit still: 0 = Not at all Becoming easily annoyed or irritable: 0 = Not at all Feeling afraid as if something awful might happen: 0 = Not at all Total ANGELICA-7 score (0-4 normal; 5-9 mild; 10-14 moderate; 15-21 severe): 0 Source: Developed by Drs. Rolando Hunt, Franchesca Dhaliwal, Peyman Pena and colleagues, with an educational keith from [employer]. ANGELICA-7 Assessment Billing ANGELICA-7 Assessment Tool: ANGELICA-7 Assessment 01163 Physical exam (Primary Care) Vital Signs: Last Vital Signs Temp 97.1 F 12/12/24 12:20 Pulse 55 12/12/24 12:24 Resp 12 12/12/24 12:24 BP 120/70 12/12/24 12:24 Pulse Ox 98 12/12/24 12:24 Oxygen Delivery Method Room Air 12/12/24 12:24 BMI result Body Mass Index 25.1 Tobacco/Smoking Status: Tobacco use Status Tobacco use date assessed 12/12/24 12/12/24 12:25 Patient Tobacco Use Status Former Tobacco user 12/12/24 12:25 e-Cigarette/Vaping Use Never Used 12/12/24 12:25 PHQ-9: PHQ-9 Score PHQ-9: Total score 0 12/12/24 12:56 Depression Screening Interpretation: Negative Thrive Assessment: Date of Thrive Assessment Date Thrive assessed 12/12/24 12/12/24 12:25 Office Procedures EKG 88368-[id number], Complete Coding Level of Care Code Est Pt Level 5 (50095) Complex EM visit Add On G2211 Diagnoses Encounter to establish care with new provider Z76.89 Syncope and collapse R55 Hypercholesterolemia E78.00 Bradycardia R00.1 Memory impairment R41.3 Nonintractable headache, unspecified chronicity pattern, unspecified headache type R51.9 Headache type: unspecified Headache chronicity pattern: unspecified pattern Intractability: not intractable CPT Codes EKG - CPT: 05707-Khibpucgrslyxjxim, Complete ([id number]) Additional Codes ANGELICA-7 Assessment Billing - ANGELICA-7 Assessment Tool: ANGELICA-7 Assessment 68286 ([id number]) PHQ-9 - 02569 - PHQ-9 Billing: Yes ([id number]) Assessment & Plan Assessment & Plan (1) Encounter to establish care with new provider: Code(s): Z76.89 - Persons encountering health services in other specified circumstances (2) Syncope and collapse: Code(s): R55 - Syncope and collapse Category: Medical (3) Hypercholesterolemia: Code(s): E78.00 - Pure hypercholesterolemia, unspecified Category: Medical (4) Bradycardia: Code(s): R00.1 - Bradycardia, unspecified Category: Medical (5) Memory impairment: Code(s): R41.3 - Other amnesia Category: Medical (6) Headache: Code(s): R51.9 - Headache, unspecified Category: Medical Qualifiers: Headache type: unspecified Headache chronicity pattern: unspecified pattern Intractability: not intractable Qualified Code(s): R51.9 - Headache, unspecified Plan . Orders: Orders Complete Blood Count no Diff Today R55 - Syncope and collapse CA stress test Today R55 - Syncope and collapse NM cardiolite stress test Today R55 - Syncope and collapse IRON PROFILE Today R55 - Syncope and collapse Vitamin B12 and Folate Today R55 - Syncope and collapse Comprehensive Met. Panel Today R55 - Syncope and collapse Magnesium Today R55 - Syncope and collapse CA echo transesophageal Today E78.00 - Pure hypercholesterolemia, unspecified, R00.1 - Bradycardia, unspecified, R55 - Syncope and collapse CT angio head neck Today R41.3 - Other amnesia, R51.9 - Headache, unspecified, R55 - Syncope and collapse
[2024-12-12 12:20] VITALS: BP 118/66; PULSE 50; RESP 12; TEMP 36.2; O2SAT 97; BMI 25.1
[2024-12-12 12:24] VITALS: BP 116/66; BP 120/70; PULSE 55; PULSE 57; RESP 12; O2SAT 100; O2SAT 98
--- OUTSIDE RECORDS SUMMARY | 2024-12-12 12:53 | XMS_ITS | Encounter Summary ---
Author Organization [facility] Address [address] [place] [id number] Phone Care Team Providers Care Activated Sludge Operator Name Role Phone Pcp, Unknown Primary Care Provider Unavailabl e Encounter Details Date Type Department Care Team (Late st Contact Info) Description 11/17/2020 Procedure Pass [facility], Ct Scan - [address] [address] Social History Tobacco Use Types Packs/Day Years Used Date Smoking Tobacco: Former Smokeless Tobacco: Never Alcohol Use Standard Drinks/Week Comments Yes 0 (1 standard drink = 0.6 oz pur e alcohol) Sex and Gender Information Value Date Recorded Sex Assigned at Not on file Legal Sex Male 2:44 PM EDT Gender Identity Not on file Sexual Orientation Not on file documented as of this encounter Functional Status * Calculated C-SSRS Risk Score (Lifetime/Recent) Answer Date of Assessment Author No Risk Indicated 11/17/2020 3:04 PM EDT Tram Murillo RN * [place] Suicide Severity Rating Scale (Screener/Recent Self-Report) Question Answer Date of Assessment Author 1. Wish to be (Past 1 Month) No 11/17/2020 3:04 PM EDT Tram Theodore RN 2. Non-Specific Active Suici sangeetha Thoughts (Past 1 Month) No 11/17/2020 3:04 PM EDT Jena Theodore RN 6. Suicidal Behavior (Lifetime) No 3:04 PM EDT Tram Theodore RN documented as of this encounter Plan of Treatment Not on file documented as of this encounter Visit Diagnoses Not on filedocumented in this encounter Care Teams Activated Sludge Operator Relationship Specialty Start Date End Date Pcp, Unknown PCP - General 11/17/20 documented as of this encounter Additional Source Comments The information contained in this document represents components of the legal health record. It is not the complete legal health record.[facility]
== END 2024-12-12 13:45 | disposition home or self-care (01) ==
LOC: HO.HMCFM 12:13
PROVIDERS: PCP Nurse Practitioner Family; Visit Provider Nurse Practitioner Family
DX: R55 Syncope and collapse (principal); E78.00 Pure hypercholesterolemia, unspecified; R00.1 Bradycardia, unspecified; R41.3 Other amnesia; R51.9 Headache, unspecified; Z76.89 Persons encountering health services in other specified circumstances

== ENCOUNTER → 2024-12-12 12:13 | Outpatient (BNVA) | payer MEDICARE, SELFPAY | PROVIDERS: PCP Nurse Practitioner Family; Visit Provider Nurse Practitioner Family | DX: R42 Dizziness and giddiness (principal); E78.5 Hyperlipidemia, unspecified; N40.0 Benign prostatic hyperplasia without lower urinary tract symptoms; R41.3 Other amnesia; R55 Syncope and collapse; E78.00 Pure hypercholesterolemia, unspecified; R00.1 Bradycardia, unspecified; R51.9 Headache, unspecified; Z76.89 Persons encountering health services in other specified circumstances | CPT/HCPCS: 93005; 96127; 99212 ==